=== PATIENT | male | born 1940 | race Caucasian/White ===

== ENCOUNTER 2018-01-29 09:38 | Inpatient (IN) ==
[2018-01-29] MEDS ORDERED: diphenhydrAMINE CAP 25 MG CAPSULE PO ONE (09:54)
[2018-01-29] MEDS ORDERED: ASPIRIN 325 MG TABLET PO ONE (09:54)
[2018-01-29] MEDS ORDERED: MAGNESIUM SULF RIDER 2 GM in PREMIX 1 EACH IV PRN (09:54)
[2018-01-29] MEDS ORDERED: DIAZEPAM 5 MG TABLET PO ONE (09:54)
[2018-01-29] MEDS ORDERED: POTASSIUM CHLORIDE RIDER 10 MEQ in PREMIX 1 EACH IV PRN (09:54)
[2018-01-29] MEDS ORDERED: HEPARIN/NACL 0.9% 2 UNITS/ML 1,000 ML IV ONE (10:20)
[2018-01-29] MEDS ORDERED: ASPIRIN 325 MG TABLET ONE (10:33)
[2018-01-29] MEDS ORDERED: DIAZEPAM 5 MG TABLET ONE (10:34)
[2018-01-29] MEDS ORDERED: diphenhydrAMINE CAP 25 MG CAPSULE ONE (10:34)
[2018-01-29 10:36] LABS: Basophils % 0.4 % (0.0-0.8); Eosinophils # 0.4 10*3/uL (0.0-0.87); Eosinophils % 5.3 % (0.00-10.9); Hemoglobin 14.9 GM/DL (14.0-18.0); Immature Granulocytes % 0.4 %; Immature Granulocytes Absolute 0.03 #; Lymphocytes % 28.8 % (21.2-54.2); Mean Corpuscular HGB Conc 33.9 GM/DL (32-36); Mean Corpuscular Hemoglobin 30 PG (27-34); Mean Corpuscular Volume 88.9 FL (87-102); Monocytes # 0.6 10*3/uL (0.11-0.8); Monocytes % 9.3 % (1.7-12.7); Neutrophils # 3.8 10*3/uL (1.4-7.4); Neutrophils % 55.8 % (38.7-73.9); Platelet Count 233 T/CUMM (130-400); Red Blood Count 4.95 MC/CUMM (3.8-5.5); Red Cell Distribution Width 12.2 % (9.3-17.3); White Blood Count 6.8 T/CUMM (4-12)
[2018-01-29] MEDS: SODIUM CHLORIDE 0.9% 1,000 ML IV SCH (10:36)
[2018-01-29 10:43] LABS: PT Patient Result 11.2 SECS
[2018-01-29 11:16] LABS: Calcium 8.7 MG/DL (8.5-10.1); Osmolality,Calculated 279.5 MOS/KG (273-304); Potassium 3.6 MMOL/L (3.5-5.1)
[2018-01-29] MEDS ORDERED: VERAPAMIL 5 MG/2 ML VIAL ONE (11:59)
[2018-01-29] MEDS ORDERED: HYDROmorphone 2 MG/1 ML VIAL ONE (11:59)
[2018-01-29] MEDS ORDERED: MIDAZOLAM 2 MG/2 ML VIAL ONE (11:59)
[2018-01-29] MEDS ORDERED: NITROGLYCERIN DRIP 50 MG/250 ML BOTTLE IV ONE (11:59)
[2018-01-29] MEDS ORDERED: ENOXAPARIN 30 MG/0.3 ML SYRINGE ONE (12:10)
[2018-01-29] MEDS ORDERED: diphenhydrAMINE CAP 25 MG CAPSULE PO PRN (12:46)
[2018-01-29] MEDS: FAMOTIDINE 20 MG TABLET PO SCH (18:26)
[2018-01-29] MEDS: ROSUVASTATIN 10 MG TABLET PO SCH (21:11)
[2018-01-29] MEDS: CARVEDILOL 3.125 MG TABLET PO SCH (21:12)
[2018-01-29] MEDS: DOCUSATE SODIUM 100 MG CAPSULE PO SCH (21:12)
[2018-01-29] MEDS: VITAMIN E 400 UNIT CAPSULE PO SCH (21:12)
[2018-01-30 05:09] LABS: Basophils % 0.4 % (0.0-0.8); Eosinophils # 0.4 10*3/uL (0.0-0.87); Eosinophils % 6.6 % (0.00-10.9); Hematocrit 42.5 VOL% (42.0-52.0); Hemoglobin 14.2 GM/DL (14.0-18.0); Immature Granulocytes % 0.4 %; Immature Granulocytes Absolute 0.03 #; Lymphocytes # 2.1 10*3/uL (1.4-4.0); Mean Corpuscular HGB Conc 33.4 GM/DL (32-36); Mean Corpuscular Hemoglobin 30 PG (27-34); Mean Corpuscular Volume 89.1 FL (87-102); Mean Platelet Volume 10.5 FL (9.6-12.0); Monocytes # 0.7 10*3/uL (0.11-0.8); Monocytes % 9.7 % (1.7-12.7); Neutrophils # 3.4 10*3/uL (1.4-7.4); Neutrophils % 50.9 % (38.7-73.9); Platelet Count 219 T/CUMM (130-400); Red Blood Count 4.77 MC/CUMM (3.8-5.5); Red Cell Distribution Width 12.2 % (9.3-17.3); White Blood Count 6.7 T/CUMM (4-12)
[2018-01-30 06:03] LABS: Calcium 8.2 MG/DL (8.5-10.1); Osmolality,Calculated 282.3 MOS/KG (273-304); Potassium 3.8 MMOL/L (3.5-5.1)
[2018-01-30] MEDS: ASPIRIN EC 81 MG TABLET PO SCH (09:08)
[2018-01-30] MEDS: CARVEDILOL 3.125 MG TABLET PO SCH ×2 (09:08→21:56)
[2018-01-30] MEDS: SODIUM CHLORIDE 0.9% 1,000 ML IV SCH (09:11)
[2018-01-30] MEDS ORDERED: GLUCAGON 1 MG VIAL IM PRN (09:57)
[2018-01-30] MEDS ORDERED: DEXTROSE 50% 25 GM/50 ML VIAL IV PRN (09:57)
[2018-01-30] MEDS ORDERED: SODIUM CHLORIDE 0.9% 1,000 ML IV SCH (10:00)
[2018-01-30] MEDS ORDERED: IBUPROFEN 200 MG TABLET PO PRN (10:02)
[2018-01-30 10:38] LABS: ABG Base Excess 3.7 MMOL/L (-2.5-2.5); ABG HCO3 27.6 MMOL/L (20-26); ABG Oxygen Saturation 96.5 % (95-100); ABG PCO2 42.9 MM HG (35-48); ABG PO2 84.3 MM HG (80-95); ABG TCO2 24.1 MMOL/L (23-27); Allen Test Positive; Pt O2 Delivery Device Room Air
[2018-01-30] MEDS: ASPIRIN 325 MG TABLET PO SCH (18:33)
[2018-01-30] MEDS: FAMOTIDINE 20 MG TABLET PO SCH (18:33)
[2018-01-30] MEDS: CHLORHEXIDINE 4% SOLN 118 ML BOTTLE TOP SCH ×2 (18:34→21:58)
[2018-01-30] MEDS: ROSUVASTATIN 10 MG TABLET PO SCH (21:55)
[2018-01-30] MEDS: DOCUSATE SODIUM 100 MG CAPSULE PO SCH (21:56)
[2018-01-30] MEDS: VITAMIN E 400 UNIT CAPSULE PO SCH (21:56)
[2018-01-30] MEDS: CHLORHEXIDINE 0.12% ORAL RINSE 60 ML BOTTLE SWISH/SPIT SCH (21:59)
[2018-01-31 05:23] LABS: Basophils # 0.1 10*3/uL (0.0-0.2); Basophils % 0.7 % (0.0-0.8); Eosinophils # 0.4 10*3/uL (0.0-0.87); Eosinophils % 6.2 % (0.00-10.9); Hematocrit 43.7 VOL% (42.0-52.0); Hemoglobin 14.6 GM/DL (14.0-18.0); Immature Granulocytes % 0.8 %; Immature Granulocytes Absolute 0.06 #; Lymphocytes # 2.5 10*3/uL (1.4-4.0); Lymphocytes % 34.7 % (21.2-54.2); Mean Corpuscular HGB Conc 33.4 GM/DL (32-36); Mean Corpuscular Hemoglobin 30 PG (27-34); Mean Corpuscular Volume 89.4 FL (87-102); Mean Platelet Volume 10.3 FL (9.6-12.0); Monocytes # 0.7 10*3/uL (0.11-0.8); Monocytes % 9.4 % (1.7-12.7); Neutrophils # 3.5 10*3/uL (1.4-7.4); Neutrophils % 48.2 % (38.7-73.9); Platelet Count 224 T/CUMM (130-400); Red Blood Count 4.89 MC/CUMM (3.8-5.5); Red Cell Distribution Width 12.3 % (9.3-17.3); White Blood Count 7.2 T/CUMM (4-12)
[2018-01-31 05:56] LABS: Risk Ratio 4.8; VLDL CHOLESTEROL 37.8 MG/DL
[2018-01-31 06:31] LABS: Albumin 3.3 G/DL (3.4-5.0); Bilirubin,Total 0.4 MG/DL (0.2-1.0); Calcium 8.7 MG/DL (8.5-10.1); Osmolality,Calculated 283.3 MOS/KG (273-304); Potassium 3.8 MMOL/L (3.5-5.1); Total Protein 6.9 G/DL (6.4-8.3)
[2018-01-31] MEDS: ASPIRIN EC 81 MG TABLET PO SCH (08:26)
[2018-01-31] MEDS: CARVEDILOL 3.125 MG TABLET PO SCH ×2 (08:27→21:40)
[2018-01-31] MEDS: CHLORHEXIDINE 4% SOLN 118 ML BOTTLE TOP SCH (09:22)
[2018-01-31] MEDS: CHLORHEXIDINE 0.12% ORAL RINSE 60 ML BOTTLE SWISH/SPIT SCH ×2 (10:16→21:46)
[2018-01-31] MEDS: SODIUM CHLORIDE 0.9% 1,000 ML IV SCH (12:13)
[2018-01-31] MEDS: ASPIRIN 325 MG TABLET PO SCH (18:11)
[2018-01-31] MEDS: FAMOTIDINE 20 MG TABLET PO SCH (18:11)
[2018-01-31] MEDS: VITAMIN E 400 UNIT CAPSULE PO SCH (21:39)
[2018-01-31] MEDS: ROSUVASTATIN 10 MG TABLET PO SCH (21:40)
[2018-01-31] MEDS: DOCUSATE SODIUM 100 MG CAPSULE PO SCH (21:40)
[2018-02-01] MEDS: ASPIRIN EC 81 MG TABLET PO SCH (08:45)
[2018-02-01] MEDS: CHLORHEXIDINE 0.12% ORAL RINSE 60 ML BOTTLE SWISH/SPIT SCH ×2 (08:45→20:28)
[2018-02-01] MEDS: CARVEDILOL 3.125 MG TABLET PO SCH ×2 (08:45→20:26)
[2018-02-01] MEDS ORDERED: CEFUROXIME INJ 1,500 MG in SYRINGE 1 EACH IV ONE (09:57)
[2018-02-01] MEDS: SODIUM CHLORIDE 0.9% 1,000 ML IV SCH (10:04)
[2018-02-01] MEDS: FAMOTIDINE 20 MG TABLET PO SCH (18:10)
[2018-02-01] MEDS: ASPIRIN 325 MG TABLET PO SCH (18:10)
[2018-02-01] MEDS: ROSUVASTATIN 10 MG TABLET PO SCH (20:26)
[2018-02-01] MEDS: DOCUSATE SODIUM 100 MG CAPSULE PO SCH (20:26)
[2018-02-01] MEDS: VITAMIN E 400 UNIT CAPSULE PO SCH (20:26)
[2018-02-02] MEDS ORDERED: VANCOMYCIN 1,000 MG VIAL ONE (04:51)
[2018-02-02] MEDS ORDERED: PAPAVERINE 60 MG/2 ML VIAL ONE (04:51)
[2018-02-02] MEDS ORDERED: LORazepam 1 MG TABLET PO ONE (05:30)
[2018-02-02] MEDS ORDERED: FAMOTIDINE 20 MG TABLET PO ONE (05:30)
[2018-02-02] MEDS: CARVEDILOL 3.125 MG TABLET PO SCH ×2 (05:37→08:35)
[2018-02-02] MEDS: CHLORHEXIDINE 0.12% ORAL RINSE 60 ML BOTTLE SWISH/SPIT SCH ×3 (05:38→21:12)
[2018-02-02] MEDS ORDERED: CEFUROXIME INJ 1,500 MG in SYRINGE 1 EACH IV ONE (06:00)
[2018-02-02] MEDS ORDERED: HEPARIN/NACL 0.9% 2 UNITS/ML 500 ML IV ONE (06:22)
[2018-02-02] MEDS ORDERED: SODIUM BICARBONATE 50 MEQ/50 ML SYRINGE IV ONE ×2 (07:27→11:08)
[2018-02-02] MEDS ORDERED: CALCIUM CHLORIDE 1,000 MG/10 ML SYRINGE IV ONE (07:27)
[2018-02-02] MEDS ORDERED: ALBUMIN 5% 12.5 GM/250 ML VIAL IV ONE (07:28)
[2018-02-02] MEDS ORDERED: POTASSIUM CHLORIDE RIDER 100 ML IV ONE (07:28)
[2018-02-02] MEDS ORDERED: NITROPRUSSIDE 50 MG/2 ML VIAL ONE (07:28)
[2018-02-02] MEDS ORDERED: EPINEPHrine 1 MG/10 ML SYRINGE ONE (07:28)
[2018-02-02] MEDS ORDERED: PHENYLEPHRINE DRIP 40 MG/250 ML PREMIX IV ONE (07:30)
[2018-02-02 07:38] LABS: ABG Base Excess -0.9 MMOL/L (-2.5-2.5); ABG HCO3 23.7 MMOL/L (20-26); ABG Oxygen Saturation 99.6 % (95-100); ABG PCO2 39.8 MM HG (35-48); ABG PH 7.387 (7.35-7.45); ABG TCO2 20.7 MMOL/L (23-27); Glucose Heart Surgery 123 MG/DL (74-106); Hematocrit Heart Surgery 42.9 PERCENT (42-52); Ionized Calcium Arterial 1.12 MMOL/L (1.21-1.46); PCO2 Patient Temp Arterial 39.8 MMHG; PH Patient Temp Arterial 7.387; Patient Temperature 37 CELCIUS; Potassium Heart/CVR 3.7 MMOL/L (3.5-5.1); Sodium Heart/CVR 138 MMOL/L (135-145)
[2018-02-02 08:09] LABS: Apearance,Urine CLEAR (Clear); Bacteria,Urine Occasional /HPF (Few); Bilirubin,Urine Negative (Negative); Blood, Urine Negative (Negative); Glucose,Urine (UA) Negative (Negative); Ketones,Urine Negative (Negative); Nitrite,Urine Negative (Negative); Protein,Urine Negative; RBC,Urine 1 /HPF (0-4); Urine Color Yellow (Yellow); Urine Specific Gravity 1.018 (1.001-1.035); Urine Urobilinogen < 2.0 EU/DL (0.2-1.0); WBC,Urine <1 /HPF (0-6)
[2018-02-02] MEDS: ASPIRIN EC 81 MG TABLET PO SCH (08:35)
[2018-02-02 09:12] LABS: Hematocrit Heart Surgery 31.4 PERCENT (42-52); Hemoglobin Heart Surgery 10.1 G/DL (14.0-18.0); PCO2 Patient Temp Venous 34.2 MM HG; PH Patient Temp Venous 7.445; PO2 Patient Temp Venous 42.2 MM HG; Potassium Heart/CVR 4.3 MMOL/L (3.5-5.1); VBG Base Excess -0.1 MEQ/L (0-4); VBG HCO3 24.2 MEQ/L (24-28); VBG Oxygen Saturation 87.2 %; VBG PCO2 39.5 MMHG (41-51); VBG PH 7.401; VBG PO2 51.8 MMHG (17-40)
[2018-02-02] MEDS: SODIUM CHLORIDE 0.9% 1,000 ML IV SCH (09:15)
[2018-02-02 09:42] LABS: Hematocrit Heart Surgery 32.3 PERCENT (42-52); Hemoglobin Heart Surgery 10.4 G/DL (14.0-18.0); PCO2 Patient Temp Venous 27.5 MM HG; PH Patient Temp Venous 7.508; PO2 Patient Temp Venous 43.2 MM HG; Potassium Heart/CVR 4.7 MMOL/L (3.5-5.1); VBG Base Excess -0.3 MEQ/L (0-4); VBG HCO3 24.1 MEQ/L (24-28); VBG Oxygen Saturation 94.1 %; VBG PCO2 38.6 MMHG (41-51); VBG PH 7.406; VBG PO2 68.3 MMHG (17-40)
[2018-02-02 10:25] LABS: Hematocrit Heart Surgery 36.9 PERCENT (42-52); PCO2 Patient Temp Venous 32.6 MM HG; PH Patient Temp Venous 7.456; PO2 Patient Temp Venous 42.2 MM HG; Potassium Heart/CVR 4.9 MMOL/L (3.5-5.1); VBG Base Excess -0.2 MEQ/L (0-4); VBG HCO3 23.9 MEQ/L (24-28); VBG Oxygen Saturation 80.7 %; VBG PCO2 32.6 MMHG (41-51); VBG PH 7.456; VBG PO2 42.2 MMHG (17-40)
[2018-02-02] MEDS ORDERED: THROMBIN TOPICAL (RECOMBINANT) 5,000 UNIT VIAL TOP ONE (10:52)
[2018-02-02 11:00] LABS: ABG Base Excess -3.3 MMOL/L (-2.5-2.5); ABG HCO3 21.7 MMOL/L (20-26); ABG Oxygen Saturation 99.4 % (95-100); ABG PCO2 38.4 MM HG (35-48); ABG PH 7.361 (7.35-7.45); ABG TCO2 19.7 MMOL/L (23-27); Glucose Heart Surgery 210 MG/DL (74-106); Hematocrit Heart Surgery 32.4 PERCENT (42-52); Hemoglobin Heart Surgery 10.5 G/DL (14.0-18.0); Ionized Calcium Arterial 1.21 MMOL/L (1.21-1.46); PCO2 Patient Temp Arterial 38.4 MMHG; PH Patient Temp Arterial 7.361; Patient Temperature 37 CELCIUS; Sodium Heart/CVR 135 MMOL/L (135-145)
[2018-02-02] MEDS ORDERED: DEXTROSE 5% KCL 20 MEQ 20 MEQ/1,000 ML BAG IV ONE (11:07)
[2018-02-02] MEDS ORDERED: MAGNESIUM SULFATE 10 GM/20 ML VIAL IV ONE (11:08)
[2018-02-02] MEDS ORDERED: PROTAMINE SULFATE 250 MG/25 ML VIAL IV ONE (11:08)
[2018-02-02] MEDS ORDERED: ALBUMIN 25% 25 GM/100 ML VIAL IV ONE (11:08)
[2018-02-02] MEDS ORDERED: methylPREDNISolone SOD SUC 1,000 MG/8 ML VIAL ONE (11:08)
[2018-02-02] MEDS ORDERED: HEPARIN 10,000 UNIT/10 ML VIAL ONE (11:08)
[2018-02-02] MEDS ORDERED: MANNITOL 12.5 GM/50 ML VIAL IV ONE (11:09)
[2018-02-02] MEDS ORDERED: FUROSEMIDE 20 MG/2 ML VIAL ONE (11:09)
[2018-02-02] MEDS ORDERED: SUFentanil 50 MCG/ML AMP ONE (12:05)
[2018-02-02] MEDS ORDERED: SUFentanil 250 MCG/5 ML AMP ONE (12:05)
[2018-02-02] MEDS ORDERED: CALCIUM CHLORIDE 1,000 MG/10 ML VIAL IV ONE (12:05)
[2018-02-02] MEDS ORDERED: SEVOFLURANE 1 UNIT/15 MINUTE INH ONE (12:05)
[2018-02-02] MEDS ORDERED: VECURONIUM 10 MG VIAL IV ONE (12:06)
[2018-02-02] MEDS ORDERED: MIDAZOLAM 10 MG/2 ML VIAL ONE (12:06)
[2018-02-02] MEDS ORDERED: ePHEDrine 50 MG/ML AMP ONE (12:06)
[2018-02-02] MEDS ORDERED: PHENYLEPHRINE 10 MG/1 ML VIAL IV ONE (12:06)
[2018-02-02] MEDS ORDERED: AMINOCAPROIC ACID 5,000 MG/20 ML VIAL IV ONE (12:07)
[2018-02-02] MEDS ORDERED: LACTATED RINGERS 1,000 ML IV ONE (12:07)
[2018-02-02] MEDS ORDERED: PHENYLEPHRINE 1 MG/10 ML SYRINGE IV ONE (12:07)
[2018-02-02] MEDS ORDERED: ETOMIDATE 40 MG/20 ML VIAL IV ONE (12:07)
[2018-02-02] MEDS ORDERED: NITROGLYCERIN DRIP 50 MG/250 ML BOTTLE IV ONE (12:07)
[2018-02-02] MEDS ORDERED: MINERAL OIL/PETROLATUM OPH OINT 3.5 GM TUBE ONE (12:07)
[2018-02-02] MEDS ORDERED: SODIUM CHLORIDE 0.9% 2,000 ML IV ONE (12:07)
[2018-02-02] MEDS ORDERED: ONDANSETRON 4 MG/2 ML VIAL IV PRN (12:08)
[2018-02-02] MEDS ORDERED: INSULIN REGULAR 100 UNIT/ML IV ONE (12:08)
[2018-02-02] MEDS ORDERED: MAGNESIUM SULF RIDER 2 GM in PREMIX 1 EACH IV PRN (12:08)
[2018-02-02] MEDS ORDERED: VECURONIUM 10 MG VIAL IV PRN ×2 (12:08)
[2018-02-02] MEDS ORDERED: INSULIN REGULAR 100 UNIT/ML IV PRN (12:08)
[2018-02-02] MEDS ORDERED: MAGNESIUM SULF RIDER 4 GM in PREMIX 1 EACH IV PRN (12:08)
[2018-02-02] MEDS ORDERED: MIDAZOLAM 10 MG/2 ML VIAL IV PRN (12:08)
[2018-02-02] MEDS ORDERED: ACETAMINOPHEN 650 MG SUPP RECTAL PRN (12:08)
[2018-02-02] MEDS ORDERED: LACTATED RINGERS 250 ML IV PRN (12:08)
[2018-02-02] MEDS ORDERED: CALCIUM CHLORIDE 1,000 MG/10 ML SYRINGE IV PRN (12:08)
[2018-02-02] MEDS ORDERED: MIDAZOLAM 2 MG/2 ML VIAL IV PRN (12:08)
[2018-02-02] MEDS ORDERED: PHENYLEPHRINE DRIP 40 MG/250 ML PREMIX IV PRN (12:08)
[2018-02-02] MEDS ORDERED: NITROPRUSSIDE 100 MG in DEXTROSE 5% 250 ML IV PRN (12:08)
[2018-02-02] MEDS ORDERED: DEXTROSE 50% 25 GM/50 ML SYRINGE IV PRN ×2 (12:08)
[2018-02-02] MEDS ORDERED: MORPHINE 10 MG/1 ML VIAL IV PRN (12:08)
[2018-02-02 12:16] LABS: ABG HCO3 21.9 MMOL/L (20-26); ABG Oxygen Saturation 97.4 % (95-100); ABG PCO2 40.1 MM HG (35-48); ABG PH 7.353 (7.35-7.45); ABG TCO2 19.9 MMOL/L (23-27); Glucose Heart Surgery 174 MG/DL (74-106); Hematocrit Heart Surgery 35.9 PERCENT (42-52); Hemoglobin Heart Surgery 11.7 G/DL (14.0-18.0); Potassium Heart/CVR 3.4 MMOL/L (3.5-5.1)
[2018-02-02 12:19] LABS: Immature Granulocytes % 0.8 %; Red Cell Distribution Width 12.3 % (9.3-17.3)
[2018-02-02] MEDS: ALBUMIN 5% 12.5 GM in PREMIX 1 EACH IV PRN ×2 (12:24→17:31)
[2018-02-02] MEDS: SODIUM CHLORIDE 0.45% 1,000 ML IV SCH ×2 (12:24)
[2018-02-02 12:25] LABS: Basophils # 0.1 10*3/uL (0.0-0.2); Basophils % 0.4 % (0.0-0.8); Eosinophils # 0.1 10*3/uL (0.0-0.87); Eosinophils % 0.8 % (0.00-10.9); Hematocrit 33.9 VOL% (42.0-52.0); Immature Granulocytes Absolute 0.11 #; Lymphocytes # 1.4 10*3/uL (1.4-4.0); Lymphocytes % 9.7 % (21.2-54.2); Mean Corpuscular HGB Conc 33.9 GM/DL (32-36); Mean Corpuscular Hemoglobin 30 PG (27-34); Mean Corpuscular Volume 89.7 FL (87-102); Mean Platelet Volume 10.1 FL (9.6-12.0); Monocytes # 0.7 10*3/uL (0.11-0.8); Neutrophils # 11.8 10*3/uL (1.4-7.4); Neutrophils % 83.3 % (38.7-73.9)
[2018-02-02 12:27] LABS: White Blood Count 14.1 T/CUMM (4-12)
[2018-02-02 12:28] LABS: Hemoglobin 11.5 GM/DL (14.0-18.0); Platelet Count 183 T/CUMM (130-400); Red Blood Count 3.78 MC/CUMM (3.8-5.5)
[2018-02-02 12:30] LABS: INR 1.1; PT Patient Result 12.1 SECS; Partial Thromboplastin Time 29.5 SECS (0-40)
[2018-02-02] MEDS: KETOROLAC 30 MG/1 ML VIAL IV SCH ×2 (12:30→18:24)
[2018-02-02] MEDS: POTASSIUM CHLORIDE RIDER 20 MEQ in PREMIX 1 EACH IV PRN ×2 (12:32→13:05)
[2018-02-02] MEDS ORDERED: SUFentanil 50 MCG/ML AMP IV ONE (12:40)
[2018-02-02] MEDS ORDERED: LACTATED RINGERS 1,000 ML IV PRN (12:44)
[2018-02-02 12:58] LABS: CKMB % 5.9 %
[2018-02-02 13:01] LABS: Troponin I 10.7 NG/ML (0.00-0.045)
[2018-02-02 13:11] LABS: Bilirubin,Total 1.2 MG/DL (0.2-1.0); Calcium 7.7 MG/DL (8.5-10.1); Osmolality,Calculated 285.3 MOS/KG (273-304); Potassium 3.6 MMOL/L (3.5-5.1); Total Protein 5.6 G/DL (6.4-8.3)
[2018-02-02 13:13] LABS: ABG Base Excess -2.9 MMOL/L (-2.5-2.5); ABG Oxygen Saturation 98.4 % (95-100); ABG PCO2 39.4 MM HG (35-48); ABG PH 7.361 (7.35-7.45); ABG TCO2 20.1 MMOL/L (23-27); Glucose Heart Surgery 147 MG/DL (74-106); Hematocrit Heart Surgery 33.4 PERCENT (42-52); Hemoglobin Heart Surgery 10.8 G/DL (14.0-18.0); Potassium Heart/CVR 4.6 MMOL/L (3.5-5.1)
[2018-02-02 14:06] LABS: ABG Base Excess -2.1 MMOL/L (-2.5-2.5); ABG HCO3 22.7 MMOL/L (20-26); ABG Oxygen Saturation 98.4 % (95-100); ABG PCO2 39.4 MM HG (35-48); ABG PH 7.373 (7.35-7.45); ABG TCO2 20.5 MMOL/L (23-27); Glucose Heart Surgery 148 MG/DL (74-106); Hematocrit Heart Surgery 35.5 PERCENT (42-52); Hemoglobin Heart Surgery 11.5 G/DL (14.0-18.0); Potassium Heart/CVR 4.5 MMOL/L (3.5-5.1)
[2018-02-02] MEDS: POTASSIUM CHLORIDE RIDER 10 MEQ in PREMIX 1 EACH IV PRN ×3 (14:10→18:26)
[2018-02-02 16:07] LABS: ABG Base Excess -2.2 MMOL/L (-2.5-2.5); ABG HCO3 22.8 MMOL/L (20-26); ABG Oxygen Saturation 97.5 % (95-100); ABG PH 7.374 (7.35-7.45); ABG PO2 110.2 MM HG (80-95); Glucose Heart Surgery 149 MG/DL (74-106); Hemoglobin Heart Surgery 12.6 G/DL (14.0-18.0); Potassium Heart/CVR 4.9 MMOL/L (3.5-5.1)
[2018-02-02 18:03] LABS: ABG Base Excess -3.4 MMOL/L (-2.5-2.5); ABG HCO3 21.6 MMOL/L (20-26); ABG Oxygen Saturation 97.1 % (95-100); ABG PCO2 43.8 MM HG (35-48); ABG PH 7.321 (7.35-7.45); ABG PO2 97.8 MM HG (80-95); ABG TCO2 20.5 MMOL/L (23-27); Glucose Heart Surgery 160 MG/DL (74-106); Potassium Heart/CVR 4.8 MMOL/L (3.5-5.1)
[2018-02-02] MEDS: INSULIN REGULAR 100 UNIT/ML SUBCUT SCH ×2 (18:24→21:10)
[2018-02-02] MEDS: CEFUROXIME INJ 1,500 MG in SYRINGE 1 EACH IV SCH (18:46)
[2018-02-02] MEDS: INSULIN REGULAR DRIP 100 ML IV SCH (18:55)
[2018-02-02] MEDS ORDERED: FUROSEMIDE 40 MG/4 ML VIAL IV ONE (19:59)
[2018-02-02] MEDS ORDERED: AMIODARONE INJ 150 MG in DEXTROSE 5% 100 ML IV ONE (20:00)
[2018-02-02 20:01] LABS: ABG Base Excess -3.8 MMOL/L (-2.5-2.5); ABG HCO3 21.2 MMOL/L (20-26); ABG Oxygen Saturation 96.2 % (95-100); ABG PCO2 42.6 MM HG (35-48); ABG PH 7.324 (7.35-7.45); ABG PO2 90.2 MM HG (80-95); ABG TCO2 19.8 MMOL/L (23-27); Glucose Heart Surgery 170 MG/DL (74-106); Hematocrit Heart Surgery 36.4 PERCENT (42-52); Hemoglobin Heart Surgery 11.8 G/DL (14.0-18.0); Potassium Heart/CVR 5.2 MMOL/L (3.5-5.1)
[2018-02-02] MEDS ORDERED: AMIODARONE 150 MG/3 ML VIAL ONE (20:14)
[2018-02-02] MEDS ORDERED: FUROSEMIDE 40 MG/4 ML VIAL IV PRN (20:26)
[2018-02-02] MEDS ORDERED: AMIODARONE INJ 450 MG in DEXTROSE 5% 241 ML IV SCH (20:30)
[2018-02-02 20:33] LABS: CKMB % 4.6 %
[2018-02-02 20:34] LABS: Troponin I 5.92 NG/ML (0.00-0.045)
[2018-02-02] MEDS: MORPHINE 4 MG/1 ML VIAL IV PRN (20:54)
[2018-02-02 23:10] LABS: ABG Base Excess -3.1 MMOL/L (-2.5-2.5); ABG HCO3 22.1 MMOL/L (20-26); ABG Oxygen Saturation 93.3 % (95-100); ABG PCO2 40.2 MM HG (35-48); ABG PH 7.358 (7.35-7.45); ABG PO2 73.3 MM HG (80-95); ABG TCO2 23.3 MMOL/L (23-27); Glucose Heart Surgery 189 MG/DL (74-106); Hemoglobin Heart Surgery 12.7 G/DL (14.0-18.0); Potassium Heart/CVR 4.9 MMOL/L (3.5-5.1)
[2018-02-03] MEDS: INSULIN REGULAR 100 UNIT/ML SUBCUT SCH ×4 (00:30→12:20)
[2018-02-03] MEDS: KETOROLAC 30 MG/1 ML VIAL IV SCH ×3 (00:32→13:20)
[2018-02-03] MEDS: MORPHINE 4 MG/1 ML VIAL IV PRN ×2 (01:01→09:45)
[2018-02-03] MEDS ORDERED: AMIODARONE INJ 450 MG in DEXTROSE 5% 241 ML IV SCH (03:30)
[2018-02-03 03:48] LABS: Basophils % 0.1 % (0.0-0.8); Hematocrit 31.3 VOL% (42.0-52.0); Hemoglobin 10.7 GM/DL (14.0-18.0); Immature Granulocytes % 0.7 %; Immature Granulocytes Absolute 0.12 #; Lymphocytes # 1.2 10*3/uL (1.4-4.0); Lymphocytes % 6.2 % (21.2-54.2); Mean Corpuscular HGB Conc 34.2 GM/DL (32-36); Mean Corpuscular Hemoglobin 31 PG (27-34); Mean Corpuscular Volume 89.7 FL (87-102); Mean Platelet Volume 10.7 FL (9.6-12.0); Monocytes % 5.5 % (1.7-12.7); Neutrophils # 16.2 10*3/uL (1.4-7.4); Neutrophils % 87.5 % (38.7-73.9); Platelet Count 172 T/CUMM (130-400); Red Blood Count 3.49 MC/CUMM (3.8-5.5); Red Cell Distribution Width 12.6 % (9.3-17.3); White Blood Count 18.5 T/CUMM (4-12)
[2018-02-03 03:49] LABS: ABG HCO3 21.8 MMOL/L (20-26); ABG Oxygen Saturation 95.4 % (95-100); ABG PCO2 39.3 MM HG (35-48); ABG PH 7.359 (7.35-7.45); Glucose Heart Surgery 169 MG/DL (74-106); Hematocrit Heart Surgery 33.9 PERCENT (42-52); Potassium Heart/CVR 4.5 MMOL/L (3.5-5.1)
[2018-02-03 04:17] LABS: CKMB % 4.3 %
[2018-02-03 04:18] LABS: Troponin I 5.46 NG/ML (0.00-0.045)
[2018-02-03 04:26] LABS: Albumin 3.4 G/DL (3.4-5.0); Bilirubin,Direct 0.14 MG/DL (0.0-0.20); Bilirubin,Total 1.4 MG/DL (0.2-1.0); Osmolality,Calculated 288.3 MOS/KG (273-304); Potassium 4.7 MMOL/L (3.5-5.1); Total Protein 6.1 G/DL (6.4-8.3)
[2018-02-03 05:56] LABS: ABG Base Excess -2.5 MMOL/L (-2.5-2.5); ABG HCO3 22.3 MMOL/L (20-26); ABG Oxygen Saturation 96.1 % (95-100); ABG PCO2 37.8 MM HG (35-48); ABG PH 7.379 (7.35-7.45); ABG PO2 81.7 MM HG (80-95); Glucose Heart Surgery 170 MG/DL (74-106); Hematocrit Heart Surgery 34.5 PERCENT (42-52); Hemoglobin Heart Surgery 11.2 G/DL (14.0-18.0); Potassium Heart/CVR 4.4 MMOL/L (3.5-5.1)
[2018-02-03] MEDS: POTASSIUM CHLORIDE RIDER 10 MEQ in PREMIX 1 EACH IV PRN (06:04)
[2018-02-03] MEDS: CEFUROXIME INJ 1,500 MG in SYRINGE 1 EACH IV SCH (07:24)
[2018-02-03 07:35] LABS: ABG Base Excess -1.6 MMOL/L (-2.5-2.5); ABG HCO3 22.7 MMOL/L (20-26); ABG Oxygen Saturation 92.2 % (95-100); ABG PCO2 36.7 MM HG (35-48); ABG PH 7.409 (7.35-7.45); ABG PO2 66.2 MM HG (80-95); ABG TCO2 23.8 MMOL/L (23-27); Glucose Heart Surgery 160 MG/DL (74-106); Hemoglobin Heart Surgery 11.6 G/DL (14.0-18.0); Potassium Heart/CVR 4.6 MMOL/L (3.5-5.1)
[2018-02-03] MEDS: CHLORHEXIDINE 0.12% ORAL RINSE 60 ML BOTTLE SWISH/SPIT SCH ×2 (08:41→21:23)
[2018-02-03] MEDS ORDERED: diphenhydrAMINE CAP 25 MG CAPSULE PO PRN (09:57)
[2018-02-03] MEDS: CARVEDILOL 3.125 MG TABLET PO SCH ×2 (10:06→21:20)
[2018-02-03] MEDS: ASPIRIN EC 81 MG TABLET PO SCH (10:06)
[2018-02-03] MEDS: AMIODARONE 200 MG TABLET PO SCH ×3 (10:33→21:20)
[2018-02-03] MEDS ORDERED: ZALEPLON 5 MG CAPSULE PO PRN (13:07)
[2018-02-03] MEDS ORDERED: MAGNESIUM SULF RIDER 4 GM in PREMIX 1 EACH IV PRN (13:07)
[2018-02-03] MEDS ORDERED: DEXTROSE 50% 25 GM/50 ML VIAL IV PRN ×2 (13:07)
[2018-02-03] MEDS ORDERED: MAGNESIUM SULF RIDER 2 GM in PREMIX 1 EACH IV PRN (13:07)
[2018-02-03] MEDS ORDERED: ALUMINUM/MAGNES/SIMETH MAX STR 30 ML UDCUP PO PRN (13:07)
[2018-02-03] MEDS ORDERED: GLUCAGON 1 MG VIAL IM PRN ×2 (13:07)
[2018-02-03] MEDS ORDERED: ACETAMINOPHEN 325 MG TABLET PO PRN (13:07)
[2018-02-03] MEDS ORDERED: SODIUM CHLOR 0.45% KCL 20 MEQ 20 MEQ/1,000 ML BAG IV SCH (13:07)
[2018-02-03] MEDS ORDERED: ONDANSETRON 4 MG/2 ML VIAL IV PRN (13:07)
[2018-02-03] MEDS: SODIUM CHLORIDE 0.45% 1,000 ML IV SCH ×2 (13:19)
[2018-02-03] MEDS: INSULIN REGULAR DRIP 100 ML IV SCH (13:20)
[2018-02-03] MEDS: oxyCODONE/ACETAMINOPHEN 5-325 MG TABLET PO PRN ×2 (13:34→21:18)
[2018-02-03] MEDS: ASCORBIC ACID 500 MG TABLET PO SCH ×2 (13:35→21:19)
[2018-02-03] MEDS: KETOROLAC 30 MG/1 ML VIAL IV PRN ×2 (16:41→23:33)
[2018-02-03] MEDS: VITAMIN E 400 UNIT CAPSULE PO SCH (21:18)
[2018-02-03] MEDS: ROSUVASTATIN 10 MG TABLET PO SCH (21:19)
[2018-02-04] MEDS: oxyCODONE/ACETAMINOPHEN 5-325 MG TABLET PO PRN ×5 (01:01→20:49)
[2018-02-04 02:00] LABS: Basophils % 0.2 % (0.0-0.8); Eosinophils % 0.1 % (0.00-10.9); Hematocrit 28.6 VOL% (42.0-52.0); Hemoglobin 9.4 GM/DL (14.0-18.0); Immature Granulocytes % 0.7 %; Immature Granulocytes Absolute 0.11 #; Lymphocytes # 1.8 10*3/uL (1.4-4.0); Lymphocytes % 11.1 % (21.2-54.2); Mean Corpuscular HGB Conc 32.9 GM/DL (32-36); Mean Corpuscular Hemoglobin 30 PG (27-34); Mean Corpuscular Volume 92.6 FL (87-102); Mean Platelet Volume 11.1 FL (9.6-12.0); Monocytes # 1.6 10*3/uL (0.11-0.8); Monocytes % 9.9 % (1.7-12.7); Neutrophils # 12.4 10*3/uL (1.4-7.4); Platelet Count 145 T/CUMM (130-400); Red Blood Count 3.09 MC/CUMM (3.8-5.5); Red Cell Distribution Width 12.9 % (9.3-17.3); White Blood Count 15.9 T/CUMM (4-12)
[2018-02-04 02:32] LABS: Alanine Aminotransferase 32 U/L (16-61); Albumin 3.1 G/DL (3.4-5.0); Alkaline Phosphatase 45 U/L (45-117); Aspartate Amino Transferase 49 U/L (0-37); Bilirubin,Indirect 0.3 MG/DL (0.0-1.0); Bilirubin,Total < 0.39 MG/DL (0.2-1.0); Blood Urea Nitrogen 36 MG/DL (7-18); CKMB % 1.9 %; Calcium 7.2 MG/DL (8.5-10.1); Glucose 148 MG/DL (74-106); Osmolality,Calculated 291.3 MOS/KG (273-304); Sodium 141 MMOL/L (136-145); Total Protein 5.9 G/DL (6.4-8.3)
[2018-02-04] MEDS: KETOROLAC 30 MG/1 ML VIAL IV PRN ×2 (05:04→18:09)
[2018-02-04] MEDS ORDERED: FUROSEMIDE 40 MG/4 ML VIAL IV ONE (06:00)
[2018-02-04] MEDS: POTASSIUM CHLORIDE 20 MEQ TABLET PO PRN (10:07)
[2018-02-04] MEDS: PANTOPRAZOLE 40 MG TABLET PO SCH (10:07)
[2018-02-04] MEDS: AMIODARONE 200 MG TABLET PO SCH ×3 (10:08→20:49)
[2018-02-04] MEDS: ASCORBIC ACID 500 MG TABLET PO SCH ×2 (10:08→20:49)
[2018-02-04] MEDS: CARVEDILOL 3.125 MG TABLET PO SCH ×2 (10:08→20:48)
[2018-02-04] MEDS: FERROUS SULFATE 325 MG TABLET PO SCH (10:09)
[2018-02-04] MEDS: DOCUSATE SODIUM 100 MG CAPSULE PO SCH (10:09)
[2018-02-04] MEDS: CHLORHEXIDINE 0.12% ORAL RINSE 60 ML BOTTLE SWISH/SPIT SCH ×2 (10:14→20:49)
[2018-02-04] MEDS: ASPIRIN EC 81 MG TABLET PO SCH (10:14)
[2018-02-04] MEDS: ROSUVASTATIN 10 MG TABLET PO SCH (20:48)
[2018-02-04] MEDS: VITAMIN E 400 UNIT CAPSULE PO SCH (20:48)
[2018-02-04] MEDS ORDERED: SODIUM PHOSPHATE ENEMA 133 ML BOTTLE RECTAL PRN (21:22)
[2018-02-04] MEDS ORDERED: LACTULOSE 20 GM/30 ML UDCUP PO ONE (21:30)
[2018-02-05] MEDS: oxyCODONE/ACETAMINOPHEN 5-325 MG TABLET PO PRN ×5 (03:03→21:48)
[2018-02-05 03:41] LABS: Basophils % 0.3 % (0.0-0.8); Eosinophils # 0.1 10*3/uL (0.0-0.87); Eosinophils % 0.7 % (0.00-10.9); Hematocrit 30.2 VOL% (42.0-52.0); Hemoglobin 9.8 GM/DL (14.0-18.0); Immature Granulocytes % 0.7 %; Immature Granulocytes Absolute 0.11 #; Lymphocytes # 2.4 10*3/uL (1.4-4.0); Lymphocytes % 15.9 % (21.2-54.2); Mean Corpuscular HGB Conc 32.5 GM/DL (32-36); Mean Corpuscular Hemoglobin 30 PG (27-34); Mean Corpuscular Volume 92.1 FL (87-102); Mean Platelet Volume 11.7 FL (9.6-12.0); Monocytes # 1.9 10*3/uL (0.11-0.8); Monocytes % 12.9 % (1.7-12.7); NRBC # 0.02 10*3/uL; Neutrophils # 10.3 10*3/uL (1.4-7.4); Neutrophils % 69.5 % (38.7-73.9); Platelet Count 178 T/CUMM (130-400); Red Blood Count 3.28 MC/CUMM (3.8-5.5); Red Cell Distribution Width 12.9 % (9.3-17.3); White Blood Count 14.9 T/CUMM (4-12)
[2018-02-05 04:02] LABS: Alanine Aminotransferase 26 U/L (16-61); Albumin 3.2 G/DL (3.4-5.0); Alkaline Phosphatase 59 U/L (45-117); Aspartate Amino Transferase 35 U/L (0-37); Bilirubin,Indirect 0.6 MG/DL (0.0-1.0); Blood Urea Nitrogen 34 MG/DL (7-18); Calcium 8.2 MG/DL (8.5-10.1); Glucose 123 MG/DL (74-106); Osmolality,Calculated 289.3 MOS/KG (273-304); Potassium 4.1 MMOL/L (3.5-5.1); Sodium 141 MMOL/L (136-145); Total Protein 6.5 G/DL (6.4-8.3)
[2018-02-05] MEDS: KETOROLAC 30 MG/1 ML VIAL IV PRN ×2 (06:38→13:35)
[2018-02-05] MEDS: DOCUSATE SODIUM 100 MG CAPSULE PO SCH (08:48)
[2018-02-05] MEDS: ASCORBIC ACID 500 MG TABLET PO SCH ×2 (08:48→21:48)
[2018-02-05] MEDS: CARVEDILOL 3.125 MG TABLET PO SCH ×2 (08:50→21:48)
[2018-02-05] MEDS: ASPIRIN EC 81 MG TABLET PO SCH (08:50)
[2018-02-05] MEDS: PANTOPRAZOLE 40 MG TABLET PO SCH (08:50)
[2018-02-05] MEDS: AMIODARONE 200 MG TABLET PO SCH ×3 (08:50→21:48)
[2018-02-05] MEDS: CHLORHEXIDINE 0.12% ORAL RINSE 60 ML BOTTLE SWISH/SPIT SCH ×2 (08:51→21:49)
[2018-02-05] MEDS: FERROUS SULFATE 325 MG TABLET PO SCH (08:51)
[2018-02-05] MEDS ORDERED: FUROSEMIDE 40 MG/4 ML VIAL IV ONE (11:02)
[2018-02-05] MEDS: VITAMIN E 400 UNIT CAPSULE PO SCH (21:48)
[2018-02-05] MEDS: ROSUVASTATIN 10 MG TABLET PO SCH (21:48)
[2018-02-06] MEDS: oxyCODONE/ACETAMINOPHEN 5-325 MG TABLET PO PRN ×5 (02:29→21:17)
[2018-02-06 05:21] LABS: Calcium 7.6 MG/DL (8.5-10.1); Osmolality,Calculated 291.1 MOS/KG (273-304); Potassium 3.7 MMOL/L (3.5-5.1)
[2018-02-06 05:41] LABS: Basophils % 0.3 % (0.0-0.8); Eosinophils # 0.3 10*3/uL (0.0-0.87); Eosinophils % 2.4 % (0.00-10.9); Hematocrit 28.7 VOL% (42.0-52.0); Hemoglobin 9.4 GM/DL (14.0-18.0); Immature Granulocytes % 1.1 %; Immature Granulocytes Absolute 0.13 #; Lymphocytes # 2.2 10*3/uL (1.4-4.0); Lymphocytes % 18.2 % (21.2-54.2); Mean Corpuscular HGB Conc 32.8 GM/DL (32-36); Mean Corpuscular Hemoglobin 30 PG (27-34); Mean Corpuscular Volume 92.3 FL (87-102); Mean Platelet Volume 11.8 FL (9.6-12.0); Monocytes # 1.3 10*3/uL (0.11-0.8); Monocytes % 10.5 % (1.7-12.7); NRBC # 0.03 10*3/uL; Neutrophils % 67.5 % (38.7-73.9); Platelet Count 204 T/CUMM (130-400); Red Blood Count 3.11 MC/CUMM (3.8-5.5); Red Cell Distribution Width 12.9 % (9.3-17.3); White Blood Count 11.9 T/CUMM (4-12)
[2018-02-06] MEDS: POTASSIUM CHLORIDE 20 MEQ TABLET PO PRN ×2 (08:43→18:14)
[2018-02-06] MEDS: FERROUS SULFATE 325 MG TABLET PO SCH (08:43)
[2018-02-06] MEDS: ASCORBIC ACID 500 MG TABLET PO SCH ×2 (08:43→21:17)
[2018-02-06] MEDS: DOCUSATE SODIUM 100 MG CAPSULE PO SCH (08:43)
[2018-02-06] MEDS: ASPIRIN EC 81 MG TABLET PO SCH (08:43)
[2018-02-06] MEDS: PANTOPRAZOLE 40 MG TABLET PO SCH (08:44)
[2018-02-06] MEDS: AMIODARONE 200 MG TABLET PO SCH ×2 (08:44→21:17)
[2018-02-06] MEDS: CARVEDILOL 3.125 MG TABLET PO SCH ×2 (08:44→21:17)
[2018-02-06] MEDS: MAGNESIUM HYDROXIDE SUSP 30 ML UDCUP PO PRN (08:44)
[2018-02-06] MEDS: CHLORHEXIDINE 0.12% ORAL RINSE 60 ML BOTTLE SWISH/SPIT SCH ×2 (08:46→21:17)
[2018-02-06] MEDS ORDERED: FUROSEMIDE 20 MG/2 ML VIAL IV ONE (14:23)
[2018-02-06] MEDS ORDERED: BISACODYL 10 MG SUPP RECTAL ONE (14:35)
[2018-02-06] MEDS: VITAMIN E 400 UNIT CAPSULE PO SCH (21:16)
[2018-02-06] MEDS: ROSUVASTATIN 10 MG TABLET PO SCH (21:17)
[2018-02-07] MEDS: oxyCODONE/ACETAMINOPHEN 5-325 MG TABLET PO PRN ×3 (03:08→20:06)
[2018-02-07 04:42] LABS: Basophils # 0.1 10*3/uL (0.0-0.2); Basophils % 0.5 % (0.0-0.8); Eosinophils # 0.4 10*3/uL (0.0-0.87); Eosinophils % 3.9 % (0.00-10.9); Hematocrit 28.8 VOL% (42.0-52.0); Hemoglobin 9.4 GM/DL (14.0-18.0); Immature Granulocytes % 1.6 %; Immature Granulocytes Absolute 0.17 #; Lymphocytes # 1.8 10*3/uL (1.4-4.0); Lymphocytes % 17.1 % (21.2-54.2); Mean Corpuscular HGB Conc 32.6 GM/DL (32-36); Mean Corpuscular Hemoglobin 30 PG (27-34); Mean Corpuscular Volume 90.9 FL (87-102); Mean Platelet Volume 10.6 FL (9.6-12.0); Monocytes # 1.1 10*3/uL (0.11-0.8); Monocytes % 10.6 % (1.7-12.7); NRBC # 0.02 10*3/uL; Neutrophils # 7.1 10*3/uL (1.4-7.4); Neutrophils % 66.3 % (38.7-73.9); Platelet Count 272 T/CUMM (130-400); Red Blood Count 3.17 MC/CUMM (3.8-5.5); Red Cell Distribution Width 12.9 % (9.3-17.3); White Blood Count 10.7 T/CUMM (4-12)
[2018-02-07] MEDS: KETOROLAC 30 MG/1 ML VIAL IV PRN (04:42)
[2018-02-07 04:56] LABS: Alanine Aminotransferase 30 U/L (16-61); Albumin 2.7 G/DL (3.4-5.0); Alkaline Phosphatase 68 U/L (45-117); Aspartate Amino Transferase 33 U/L (0-37); Bilirubin,Indirect 0.3 MG/DL (0.0-1.0); Blood Urea Nitrogen 34 MG/DL (7-18); Calcium 7.8 MG/DL (8.5-10.1); Glucose 162 MG/DL (74-106); Osmolality,Calculated 288.5 MOS/KG (273-304); Potassium 3.7 MMOL/L (3.5-5.1); Sodium 139 MMOL/L (136-145); Total Protein 6.6 G/DL (6.4-8.3)
[2018-02-07] MEDS: MAGNESIUM HYDROXIDE SUSP 30 ML UDCUP PO PRN ×2 (05:49→20:06)
[2018-02-07] MEDS: ASCORBIC ACID 500 MG TABLET PO SCH ×2 (08:42→20:06)
[2018-02-07] MEDS: FERROUS SULFATE 325 MG TABLET PO SCH (08:42)
[2018-02-07] MEDS: CARVEDILOL 3.125 MG TABLET PO SCH ×2 (08:43→20:06)
[2018-02-07] MEDS: POTASSIUM CHLORIDE 20 MEQ TABLET PO PRN ×2 (08:43→13:02)
[2018-02-07] MEDS: ASPIRIN EC 81 MG TABLET PO SCH (08:43)
[2018-02-07] MEDS: DOCUSATE SODIUM 100 MG CAPSULE PO SCH (08:43)
[2018-02-07] MEDS: AMIODARONE 200 MG TABLET PO SCH ×2 (08:43→20:06)
[2018-02-07] MEDS: PANTOPRAZOLE 40 MG TABLET PO SCH (08:43)
[2018-02-07] MEDS: CHLORHEXIDINE 0.12% ORAL RINSE 60 ML BOTTLE SWISH/SPIT SCH ×2 (11:13→20:07)
[2018-02-07] MEDS ORDERED: BISACODYL 10 MG SUPP RECTAL PRN (15:47)
[2018-02-07] MEDS: VITAMIN E 400 UNIT CAPSULE PO SCH (20:06)
[2018-02-07] MEDS: ROSUVASTATIN 10 MG TABLET PO SCH (20:06)
[2018-02-08] MEDS: oxyCODONE/ACETAMINOPHEN 5-325 MG TABLET PO PRN ×3 (00:23→20:39)
[2018-02-08 05:10] LABS: Basophils # 0.1 10*3/uL (0.0-0.2); Basophils % 0.5 % (0.0-0.8); Eosinophils # 0.5 10*3/uL (0.0-0.87); Eosinophils % 5.7 % (0.00-10.9); Hematocrit 27.4 VOL% (42.0-52.0); Hemoglobin 8.9 GM/DL (14.0-18.0); Immature Granulocytes % 2.2 %; Immature Granulocytes Absolute 0.21 #; Lymphocytes # 2.5 10*3/uL (1.4-4.0); Lymphocytes % 26.9 % (21.2-54.2); Mean Corpuscular HGB Conc 32.5 GM/DL (32-36); Mean Corpuscular Hemoglobin 30 PG (27-34); Mean Corpuscular Volume 91.9 FL (87-102); Mean Platelet Volume 10.9 FL (9.6-12.0); Monocytes % 10.3 % (1.7-12.7); Neutrophils # 5.1 10*3/uL (1.4-7.4); Neutrophils % 54.4 % (38.7-73.9); Platelet Count 304 T/CUMM (130-400); Red Blood Count 2.98 MC/CUMM (3.8-5.5); Red Cell Distribution Width 12.9 % (9.3-17.3); White Blood Count 9.4 T/CUMM (4-12)
[2018-02-08 05:37] LABS: Alanine Aminotransferase 29 U/L (16-61); Albumin 2.6 G/DL (3.4-5.0); Alkaline Phosphatase 68 U/L (45-117); Aspartate Amino Transferase 29 U/L (0-37); Bilirubin,Indirect 0.9 MG/DL (0.0-1.0); Blood Urea Nitrogen 29 MG/DL (7-18); Calcium 8.1 MG/DL (8.5-10.1); Glucose 116 MG/DL (74-106); Osmolality,Calculated 289.1 MOS/KG (273-304); Potassium 4.1 MMOL/L (3.5-5.1); Sodium 142 MMOL/L (136-145); Total Protein 6.2 G/DL (6.4-8.3)
[2018-02-08 05:49] LABS: Troponin I 0.851 NG/ML (0.00-0.045)
[2018-02-08] MEDS: ASCORBIC ACID 500 MG TABLET PO SCH ×2 (09:08→20:40)
[2018-02-08] MEDS: CHLORHEXIDINE 0.12% ORAL RINSE 60 ML BOTTLE SWISH/SPIT SCH ×2 (09:09→21:35)
[2018-02-08] MEDS: CARVEDILOL 3.125 MG TABLET PO SCH ×2 (09:09→20:39)
[2018-02-08] MEDS: FERROUS SULFATE 325 MG TABLET PO SCH (09:09)
[2018-02-08] MEDS: POTASSIUM CHLORIDE 20 MEQ TABLET PO PRN (09:09)
[2018-02-08] MEDS: AMIODARONE 200 MG TABLET PO SCH ×2 (09:09→20:38)
[2018-02-08] MEDS: DOCUSATE SODIUM 100 MG CAPSULE PO SCH (09:09)
[2018-02-08] MEDS: ASPIRIN EC 81 MG TABLET PO SCH (09:09)
[2018-02-08] MEDS: PANTOPRAZOLE 40 MG TABLET PO SCH (09:09)
[2018-02-08] MEDS: VITAMIN E 400 UNIT CAPSULE PO SCH (20:39)
[2018-02-08] MEDS: ROSUVASTATIN 10 MG TABLET PO SCH (20:39)
[2018-02-09] MEDS: oxyCODONE/ACETAMINOPHEN 5-325 MG TABLET PO PRN ×2 (02:35→06:46)
[2018-02-09 05:34] LABS: Basophils # 0.1 10*3/uL (0.0-0.2); Basophils % 0.5 % (0.0-0.8); Eosinophils # 0.6 10*3/uL (0.0-0.87); Eosinophils % 4.8 % (0.00-10.9); Hemoglobin 9.4 GM/DL (14.0-18.0); Immature Granulocytes % 2.5 %; Lymphocytes # 2.4 10*3/uL (1.4-4.0); Lymphocytes % 19.6 % (21.2-54.2); Mean Corpuscular HGB Conc 32.4 GM/DL (32-36); Mean Corpuscular Hemoglobin 30 PG (27-34); Mean Corpuscular Volume 92.7 FL (87-102); Mean Platelet Volume 11.1 FL (9.6-12.0); Monocytes # 1.1 10*3/uL (0.11-0.8); Neutrophils # 7.7 10*3/uL (1.4-7.4); Neutrophils % 63.6 % (38.7-73.9); Platelet Count 364 T/CUMM (130-400); Red Blood Count 3.13 MC/CUMM (3.8-5.5); Red Cell Distribution Width 13.1 % (9.3-17.3); White Blood Count 12.1 T/CUMM (4-12)
[2018-02-09 06:17] LABS: Calcium 7.9 MG/DL (8.5-10.1); Osmolality,Calculated 282.4 MOS/KG (273-304); Potassium 4.4 MMOL/L (3.5-5.1)
[2018-02-09 08:07] VITALS: BP 102/57
[2018-02-09] MEDS: ASCORBIC ACID 500 MG TABLET PO SCH (09:29)
[2018-02-09] MEDS: DOCUSATE SODIUM 100 MG CAPSULE PO SCH (09:29)
[2018-02-09] MEDS: AMIODARONE 200 MG TABLET PO SCH (09:29)
[2018-02-09] MEDS: FERROUS SULFATE 325 MG TABLET PO SCH (09:29)
[2018-02-09] MEDS: ASPIRIN EC 81 MG TABLET PO SCH (09:29)
[2018-02-09] MEDS: CARVEDILOL 3.125 MG TABLET PO SCH (09:30)
[2018-02-09] MEDS: PANTOPRAZOLE 40 MG TABLET PO SCH (09:30)
[2018-02-09] MEDS: CHLORHEXIDINE 0.12% ORAL RINSE 60 ML BOTTLE SWISH/SPIT SCH (09:37)
== END 2018-02-09 11:55 | disposition home health service (06) | DRG 233 ==
LOC: N.CL 09:38 → N.TELEN 14:13 → N.CVR 02-02 08:04 → N.TELES 02-03 12:56
PROVIDERS: ADMIT Internal Medicine Cardiovascular Disease; ATTEND Internal Medicine Cardiovascular Disease

== ENCOUNTER 2020-08-18 11:33 | Inpatient (IN) ==
[2020-08-18 12:47] LABS: Basophils % 0.3 % (0.0-0.8); Eosinophils # 0.4 10*3/uL (0.0-0.87); Eosinophils % 3.1 % (0.00-10.9); Hematocrit 40.3 VOL% (42.0-52.0); Hemoglobin 13.9 GM/DL (14.0-18.0); Immature Granulocytes % 0.9 %; Immature Granulocytes Absolute 0.12 #; Lymphocytes # 1.9 10*3/uL (1.4-4.0); Lymphocytes % 15.3 % (21.2-54.2); Mean Corpuscular HGB Conc 34.5 GM/DL (32-36); Mean Corpuscular Volume 90.2 FL (87-102); Mean Platelet Volume 9.8 FL (9.6-12.0); Monocytes % 7.2 % (1.7-12.7); Neutrophils % 73.2 % (38.7-73.9); Platelet Count 202 T/CUMM (130-400); Red Blood Count 4.47 MC/CUMM (3.8-5.5); Red Cell Distribution Width 12.3 % (9.3-17.3); White Blood Count 12.7 T/CUMM (4-12)
[2020-08-18 12:56] LABS: PT Patient Result 11.3 SECS (10.5-12.0)
[2020-08-18 13:04] LABS: Albumin 3.5 G/DL (3.4-5.0); Bilirubin,Total 0.4 MG/DL (0.2-1.0); Calcium 8.7 MG/DL (8.5-10.1); Osmolality,Calculated 276.5 MOS/KG (273-304); Potassium 4.2 MMOL/L (3.5-5.1); Total Protein 6.6 G/DL (6.4-8.2)
[2020-08-18] MEDS ORDERED: ACETAMINOPHEN 325 MG TABLET PO PRN (14:42)
[2020-08-18] MEDS ORDERED: ONDANSETRON 4 MG/2 ML VIAL IV PRN (14:42)
[2020-08-18] MEDS ORDERED: BISACODYL 10 MG SUPP RECTAL PRN (14:43)
[2020-08-18] MEDS ORDERED: ALBUTEROL/IPRATROPIUM 3 ML NEB RESP TX PRN (14:43)
[2020-08-18] MEDS ORDERED: DEXTROSE 50% 25 GM/50 ML VIAL IV PRN (14:43)
[2020-08-18] MEDS ORDERED: GLUCAGON 1 MG VIAL IM PRN (14:43)
[2020-08-18] MEDS ORDERED: MORPHINE 4 MG/1 ML VIAL IV PRN (14:43)
[2020-08-18] MEDS ORDERED: KETOROLAC 30 MG/1 ML VIAL IV PRN (14:49)
[2020-08-18] MEDS: INSULIN LISPRO 100 UNIT/ML SUBCUT SCH ×2 (17:29→21:29)
[2020-08-18] MEDS: MORPHINE 4 MG/1 ML VIAL IV PRN (17:49)
[2020-08-18 18:59] LABS: Bilirubin,Urine Negative (Negative); Blood, Urine Negative (Negative); Glucose,Urine (UA) Negative (Negative); Ketones,Urine Negative (Negative); Mucus,Urine Occasional /LPF (Occasional); Nitrite,Urine Negative (Negative); Protein,Urine Negative; RBC,Urine 2 /HPF (0-4); Squamous Epithelial Cell,Urine Occasional /HPF (0-10); Urine Appearance CLEAR (Clear); Urine Color Yellow (Yellow); Urine Specific Gravity > 1.060 (1.001-1.035); Urine Urobilinogen < 2.0 EU/DL (0.2-1.0)
[2020-08-18] MEDS ORDERED: VITAMIN E 400 UNIT CAPSULE PO SCH (19:00)
[2020-08-18] MEDS ORDERED: DOCUSATE SODIUM 100 MG CAPSULE PO SCH (19:00)
[2020-08-18] MEDS ORDERED: FAMOTIDINE 20 MG TABLET PO SCH (19:00)
[2020-08-18] MEDS: ALBUTEROL/IPRATROPIUM 3 ML NEB RESP TX SCH (19:22)
[2020-08-18] MEDS: carvediloL 3.125 MG TABLET PO SCH (20:25)
[2020-08-18] MEDS: metFORMIN 500 MG TABLET PO SCH (20:26)
[2020-08-18] MEDS: ASCORBIC ACID 500 MG TABLET PO SCH (20:26)
[2020-08-18] MEDS ORDERED: ROSUVASTATIN 10 MG TABLET PO SCH (21:00)
[2020-08-19] MEDS: MORPHINE 4 MG/1 ML VIAL IV PRN ×2 (01:26→13:57)
[2020-08-19] MEDS: ALBUTEROL/IPRATROPIUM 3 ML NEB RESP TX SCH ×4 (01:37→19:51)
[2020-08-19 06:00] LABS: Basophils % 0.4 % (0.0-0.8); Eosinophils # 0.2 10*3/uL (0.0-0.87); Eosinophils % 2.4 % (0.00-10.9); Hematocrit 39.3 VOL% (42.0-52.0); Hemoglobin 13.6 GM/DL (14.0-18.0); Immature Granulocytes % 0.4 %; Immature Granulocytes Absolute 0.04 #; Lymphocytes # 1.9 10*3/uL (1.4-4.0); Lymphocytes % 18.5 % (21.2-54.2); Mean Corpuscular HGB Conc 34.6 GM/DL (32-36); Mean Corpuscular Volume 90.8 FL (87-102); Mean Platelet Volume 10.5 FL (9.6-12.0); Neutrophils % 67.3 % (38.7-73.9); Platelet Count 227 T/CUMM (130-400); Red Blood Count 4.33 MC/CUMM (3.8-5.5); Red Cell Distribution Width 12.6 % (9.3-17.3); White Blood Count 10.1 T/CUMM (4-12)
[2020-08-19 06:23] LABS: Albumin 3.4 G/DL (3.4-5.0); Calcium 8.7 MG/DL (8.5-10.1); Osmolality,Calculated 279.5 MOS/KG (273-304); Potassium 3.9 MMOL/L (3.5-5.1); Total Protein 6.9 G/DL (6.4-8.2)
[2020-08-19] MEDS: metFORMIN 500 MG TABLET PO SCH ×2 (09:00→20:08)
[2020-08-19] MEDS ORDERED: ESCITALOPRAM 10 MG TABLET PO SCH (09:00)
[2020-08-19] MEDS ORDERED: CETIRIZINE 10 MG TABLET PO SCH (09:00)
[2020-08-19] MEDS: MEMANTINE 5 MG TABLET PO SCH (09:01)
[2020-08-19] MEDS: carvediloL 3.125 MG TABLET PO SCH ×2 (09:01→20:07)
[2020-08-19] MEDS: ASCORBIC ACID 500 MG TABLET PO SCH ×2 (09:01→20:07)
[2020-08-19] MEDS: PANTOPRAZOLE 40 MG TABLET PO SCH (09:02)
[2020-08-19] MEDS: DONEPEZIL 10 MG TABLET PO SCH (09:02)
[2020-08-19] MEDS: ENOXAPARIN 40 MG/0.4 ML SYRINGE SUBCUT SCH (09:04)
[2020-08-19] MEDS: INSULIN LISPRO 100 UNIT/ML SUBCUT SCH ×3 (14:00→22:10)
[2020-08-19] MEDS: diphenhydrAMINE CAP 25 MG CAPSULE PO PRN (20:07)
[2020-08-19] MEDS: DOCUSATE SODIUM 100 MG CAPSULE PO SCH (20:07)
[2020-08-19] MEDS: ROSUVASTATIN 10 MG TABLET PO SCH (20:07)
[2020-08-19] MEDS: ASPIRIN 325 MG TABLET PO SCH (20:07)
[2020-08-19] MEDS: FAMOTIDINE 20 MG TABLET PO SCH (20:08)
[2020-08-19] MEDS: VITAMIN E 400 UNIT CAPSULE PO SCH (20:08)
[2020-08-20] MEDS: ALBUTEROL/IPRATROPIUM 3 ML NEB RESP TX SCH ×4 (00:38→19:23)
[2020-08-20] MEDS: INSULIN LISPRO 100 UNIT/ML SUBCUT SCH ×4 (07:58→22:03)
[2020-08-20] MEDS: ASCORBIC ACID 500 MG TABLET PO SCH ×2 (08:39→21:16)
[2020-08-20] MEDS: PANTOPRAZOLE 40 MG TABLET PO SCH (08:39)
[2020-08-20] MEDS: MEMANTINE 5 MG TABLET PO SCH (08:39)
[2020-08-20] MEDS: metFORMIN 500 MG TABLET PO SCH ×2 (08:39→21:18)
[2020-08-20] MEDS: DONEPEZIL 10 MG TABLET PO SCH (08:39)
[2020-08-20] MEDS: carvediloL 3.125 MG TABLET PO SCH ×2 (08:39→21:18)
[2020-08-20] MEDS: ENOXAPARIN 40 MG/0.4 ML SYRINGE SUBCUT SCH (14:09)
[2020-08-20] MEDS: VITAMIN E 400 UNIT CAPSULE PO SCH (21:15)
[2020-08-20] MEDS: CETIRIZINE 10 MG TABLET PO SCH (21:15)
[2020-08-20] MEDS: ROSUVASTATIN 10 MG TABLET PO SCH (21:16)
[2020-08-20] MEDS: ASPIRIN 325 MG TABLET PO SCH (21:16)
[2020-08-20] MEDS: ESCITALOPRAM 10 MG TABLET PO SCH (21:16)
[2020-08-20] MEDS: DOCUSATE SODIUM 100 MG CAPSULE PO SCH (21:17)
[2020-08-20] MEDS: FAMOTIDINE 20 MG TABLET PO SCH (21:17)
[2020-08-20] MEDS: diphenhydrAMINE CAP 25 MG CAPSULE PO PRN (21:18)
[2020-08-21] MEDS: ALBUTEROL/IPRATROPIUM 3 ML NEB RESP TX SCH ×4 (00:28→19:13)
[2020-08-21] MEDS: INSULIN LISPRO 100 UNIT/ML SUBCUT SCH ×4 (07:13→20:45)
[2020-08-21] MEDS: DONEPEZIL 10 MG TABLET PO SCH (09:42)
[2020-08-21] MEDS: carvediloL 3.125 MG TABLET PO SCH ×2 (09:43→21:17)
[2020-08-21] MEDS: metFORMIN 500 MG TABLET PO SCH ×2 (09:43→21:17)
[2020-08-21] MEDS: PANTOPRAZOLE 40 MG TABLET PO SCH (09:43)
[2020-08-21] MEDS: MEMANTINE 5 MG TABLET PO SCH (09:43)
[2020-08-21] MEDS: ASCORBIC ACID 500 MG TABLET PO SCH ×2 (09:44→21:16)
[2020-08-21] MEDS: ENOXAPARIN 40 MG/0.4 ML SYRINGE SUBCUT SCH (09:46)
[2020-08-21] MEDS ORDERED: TRIAMCINOLONE ACETONIDE 40 MG/1 ML VIAL MISC INJ ONE (13:30)
[2020-08-21] MEDS ORDERED: ROPIVACAINE 0.5% 30 ML VIAL NERVEBLOCK ONE (13:30)
[2020-08-21] MEDS: ASPIRIN 325 MG TABLET PO SCH (21:15)
[2020-08-21] MEDS: VITAMIN E 400 UNIT CAPSULE PO SCH (21:16)
[2020-08-21] MEDS: ROSUVASTATIN 10 MG TABLET PO SCH (21:17)
[2020-08-21] MEDS: ESCITALOPRAM 10 MG TABLET PO SCH (21:18)
[2020-08-21] MEDS: CETIRIZINE 10 MG TABLET PO SCH (21:18)
[2020-08-21] MEDS: DOCUSATE SODIUM 100 MG CAPSULE PO SCH (21:18)
[2020-08-21] MEDS: FAMOTIDINE 20 MG TABLET PO SCH (21:19)
[2020-08-21] MEDS: diphenhydrAMINE CAP 25 MG CAPSULE PO PRN (21:23)
[2020-08-22] MEDS: ALBUTEROL/IPRATROPIUM 3 ML NEB RESP TX SCH ×2 (00:20→07:06)
[2020-08-22] MEDS: INSULIN LISPRO 100 UNIT/ML SUBCUT SCH ×2 (06:53→11:05)
[2020-08-22] MEDS: DONEPEZIL 10 MG TABLET PO SCH (09:01)
[2020-08-22] MEDS: carvediloL 3.125 MG TABLET PO SCH (09:02)
[2020-08-22] MEDS: ASCORBIC ACID 500 MG TABLET PO SCH (09:02)
[2020-08-22] MEDS: ENOXAPARIN 40 MG/0.4 ML SYRINGE SUBCUT SCH (09:02)
[2020-08-22] MEDS: metFORMIN 500 MG TABLET PO SCH (09:02)
[2020-08-22] MEDS: PANTOPRAZOLE 40 MG TABLET PO SCH (09:02)
[2020-08-22] MEDS: MEMANTINE 5 MG TABLET PO SCH (09:02)
[2020-08-22 15:54] VITALS: BP 141/63
== END 2020-08-22 15:50 | DRG 965 ==
LOC: EDUNIT# → EDBD → N.EDINP 11:33 → N.ED 11:33 → N.EDINP 15:57 → N.3E 16:05
PROVIDERS: ADMIT Student in an Organized Health Care Education/Training Program; ATTEND Student in an Organized Health Care Education/Training Program